=== PATIENT | female | born 1995 | race Hispanic/Latino ===

== ENCOUNTER 2022-02-07 07:21 | Emergency (ER) | payer SELFPAY ==
[2022-02-07 07:59] LABS: Urine Blood Negative (Negative); Urine Glucose Negative (Negative); Urine Protein Negative (Negative); Urine Specific Gravity 1.025 (1.005-1.030); Urine pH 6.5 (5.0-7.0)
[2022-02-07] MEDS ORDERED: MORPHINE 4 MG/ML SYR ONE (08:06)
[2022-02-07] MEDS ORDERED: ONDANSETRON 4 MG/2 ML VIAL ONE (08:06)
[2022-02-07] MEDS ORDERED: KETOROLAC 30 MG/ML INJ ONE (08:06)
[2022-02-07] MEDS ORDERED: NA CHLORIDE 0.9% 1,000 ML ONE (08:07)
[2022-02-07 08:08] LABS: Urine Specific Gravity/Preg 1.025 (1.005-1.030)
[2022-02-07 08:20] LABS: Hematocrit 40.2 % (36.0-45.0); Lymphocytes % 18.8 % (15.3-44.8); MPV 9.4 fL (7.6-11.3); RBC Red Blood Cell Count 5.52 M/uL (3.86-4.86)
[2022-02-07 08:35] LABS: Albumin 3.4 g/dL (3.4-5.0); Bilirubin Direct 0.1 mg/dL (0-0.2); Bilirubin Total 0.4 mg/dL (0.2-1.0); Potassium 4.5 mmol/L (3.5-5.1); Protein, Total 7.4 g/dL (6.4-8.2)
--- NOTE | 2022-02-07 09:04 | RAD REPORT ---
EXAM DESCRIPTION: CT - Chest For Pe Angio - 02/07/2022 8:55 am CLINICAL HISTORY: PAIN COMPARISON: No comparisons FINDINGS: Chest Wall: No suspicious thyroid nodules or pathologic lymphadenopathy. Lungs: No acute abnormality. Pleura: No significant effusions or pneumothorax. Mediastinum/kevin: No pathologic lymphadenopathy. Pulmonary arteries/Aorta: No filling defect identified. No aortic aneurysm. Heart: No significant pericardial effusion. Normal heart size. Upper abdomen: Reference contemporaneous CT of the abdomen pelvis. Bones: No acute abnormality. Mild superior endplate irregularity at T10, T11, and T12 may be developm ental. All CT scans are performed using dose optimization technique as appropriate and may include automated exposure control or mA/KV adjustment according to patient size. IMPRESSION: Negative for pulmonary embolism. No other acute findings are present within the chest.
--- NOTE | 2022-02-07 09:06 | RAD REPORT ---
EXAM DESCRIPTION: CTAbdomen Pelvis W Contrast - 02/07/2022 8:55 am CLINICAL HISTORY: ABD PAIN COMPARISON: Chest For Pe Angio dated 02/07/2022 TECHNIQUE: CT of the abdomen and pelvis was performed. All CT scans are performed using dose optimization technique as appropriate and may include automated exposure control or mA/KV adjustment according to patient size. FINDINGS: Lower chest: No acute abnormality. Liver: Hepatic steatosis. Biliary: No biliary ductal dilatation. Stomach: No significant focal abnormality. Duodenum: No significant focal abnormality. Pancreas: No significant abnormality. Spleen: No significant abnormality. Adrenal: No suspicious lesions. Kidney/ureter: No hydronephrosis. No renal calculi. Retroperitoneum: No retroperitoneal adenopathy. Vascular: No aneurysm. Bowel: No significant focal abnormality. Appendectomy. Peritoneum: No ascites or free air. For hernias. Bladder: Grossly unremarkable. Reproductive: No adnexal masses. Bones: No acute fracture. Other: n/a IMPRESSION: No acute intra-abdominal or pelvic finding. Prior appendectomy.
--- NOTE | 2022-02-07 09:32 | ER ---
Nurse's Notes [facility] Name: Hyun Alan Age: 26 yrs Sex: Female : 1995 Arrival Date: 02/07/2022 Time: 07:23 Bed 15 Private MD: Diagnosis: Unspecified symptoms and signs involving the musculoskeletal system-back pain;Obesity, unspecified Presentation: 02/07 07:32 Chief complaint: Patient states: Right sided flank/back pain that started 1 week ago ww and this morning the pain got worse. Patient denies any diarrhea, constipation, painful urination or urinary frequency. Coronavirus screen: Vaccine status: Patient reports receiving the 2nd dose of the covid vaccine. Client denies travel out of the [place] in the last 14 days. Ebola Screen: Patient denies travel to an Ebola-affected area in the 21 days before illness onset. Initial Sepsis Screen: Does the patient meet any 2 criteria? No. Patient's initial sepsis screen is negative. Does the patient have a suspected source of infection? No. Patient's initial sepsis screen is negative. Risk Assessment: Do you want to hurt yourself or someone else? Patient reports no desire to harm self or others. Onset of symptoms is unknown. 07:32 Method Of Arrival: Ambulatory ww 07:32 Acuity: JE 3 ww Triage Assessment: 07:33 General: Appears in no apparent distress. Behavior is calm, cooperative. Pain: ww Complains of pain in right mid back. Neuro: Level of Consciousness is awake, alert, obeys commands, Oriented to person, place, time, situation, Moves all extremities. Gait is steady, Speech is normal. Cardiovascular: Capillary refill < 3 seconds Patient's skin is warm and dry. Chest pain is denied. Respiratory: Airway is patent Respiratory effort is even, unlabored, Respiratory pattern is regular, symmetrical. GI: No signs and/or symptoms were reported involving the gastrointestinal system. : No signs and/or symptoms were reported regarding the genitourinary system. Denies pain urinary frequency. 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 - Social history:: Smoking status: Patient denies any tobacco usage or history of. Patient uses street drugs, marijuana. - Family history:: not pertinent. Screenin:35 Abuse screen: Denies threats or abuse. Denies injuries from another. Nutritional ww screening: No deficits noted. Tuberculosis screening: No symptoms or risk factors identified. Fall Risk None identified. Assessment: 07:30 General: Appears in no apparent distress. comfortable, obese, well groomed, Behavior is cb5 calm, cooperative, appropriate for age. Pain: Complains of pain in back and right mid back Pain currently is 6 out of 10 on a pain scale. Neuro: No deficits noted. Level of Consciousness is awake, alert, obeys commands, Oriented to person, place, time, situation, Appropriate for age. Cardiovascular: No deficits noted. Respiratory: Airway is patent Breath sounds are clear. GI: No deficits noted. : Reports pain, right flank. EENT: No deficits noted. Derm: No deficits noted. Musculoskeletal: No deficits noted. 08:23 Reassessment: Patient and/or family updated on plan of care and expected duration. Pain cb5 level reassessed. 08:35 Pain: Pain currently is 0 out of 10 on a pain scale. cb5 Vital Signs: 07:32 BP 120 / 75; Pulse 91; Resp 18; Temp 98.8; Pulse Ox 100% ; Weight 136.08 kg; Height 5 ww ft. 5 in. (165.10 cm); 08:37 BP 113 / 68; Pulse 76; Resp 16; Temp 98.6(O); Pulse Ox 96% on R/A; dh4 09:15 BP 115 / 67; Pulse 72; Resp 16; Pulse Ox 98% ; Pain 0/10; cb5 07:32 Body Mass Index 49.92 (136.08 kg, 165.10 cm) ww ED Course: 07:23 Patient arrived in ED. ds1 07:24 Rod Dacosta MD is Attending Physician. mayela 07:26 Arm band placed on Patient placed in an exam room, on a stretcher. ll1 07:33 Triage completed. ww 07:59 Nannette Marte RN is Primary Nurse. cb5 08:00 CBC with Diff Sent. cb5 08:00 Hepatic Function Sent. cb5 08:00 Lipase Sent. cb5 08:00 Basic Metabolic Panel Sent. cb5 08:00 Urine Dipstick-Ancillary Sent. cb5 08:22 Call light in reach. Side rails up X 1. Side rails up X2. cb5 08:55 CT Chest For PE Angio In Process Unspecified. EDMS 08:55 CT Abd/Pelvis - IV Contrast Only In Process Unspecified. EDMS Administered Medications: 08:05 Drug: NS 0.9% 1000 ml Route: IV; Rate: 1 bolus; Site: left antecubital; cb5 08:05 Drug: Ketorolac 30 mg Route: IVP; Site: left antecubital; cb5 08:05 Drug: morphine 2 mg Route: IVP; Site: left antecubital; cb5 08:05 Drug: Zofran (Ondansetron) 4 mg Route: IVP; Site: left antecubital; cb5 Outcome: 09:32 Discharge ordered by . mayela 09:42 Patient left the ED. cb5 Signatures: Dispatcher [employer] EDVT Rod Dacosta MD MD cha Sanford, Demi ds1 Patricio Walker 4 Chano Chu, RN RN ll1 Cristin Nguyen RN RN ww Nannette Marte, RN RN cb5
--- NOTE | 2022-02-07 09:33 | EDPHYS ---
Physician Documentation [facility] Name: Hyun Alan Age: 26 yrs Sex: Female : 1995 Arrival Date: 02/07/2022 Time: 07:23 Bed 15 Private MD: ED Physician Rod Dacosta HPI: 02/07 07:54 This 26 yrs old Female presents to ER via Ambulatory with complaints of Side mayela Pain. 07:54 The patient presents with abdominal pain. mayela 07:54 Onset: The symptoms/episode began/occurred 3 week(s) ago. The patient presents with mayela pain that is acute. The symptoms are located in the right mid back. Onset: The symptoms/episode began/occurred 21 day(s) ago. The pain does not radiate. Associated signs and symptoms: The patient has no apparent associated signs or symptoms. The problem was sustained from unknown cause. Modifying factors: The patient symptoms are alleviated by remaining still, the patient symptoms are aggravated by any movement, bending, coughing. Severity of symptoms: At their worst the symptoms were moderate, in the emergency department the symptoms are unchanged. 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 - Social history:: Smoking status: Patient denies any tobacco usage or history of. Patient uses street drugs, marijuana. - Family history:: not pertinent. ROS: 07:54 Constitutional: Negative for fever, chills, and weight loss, Eyes: Negative for injury, mayela pain, redness, and discharge, ENT: Negative for injury, pain, and discharge, Neck: Negative for injury, pain, and swelling, Cardiovascular: Negative for chest pain, palpitations, and edema, Respiratory: Negative for shortness of breath, cough, wheezing, and pleuritic chest pain, Abdomen/GI: Negative for abdominal pain, nausea, vomiting, diarrhea, and constipation, : Negative for injury, bleeding, discharge, and swelling, MS/Extremity: Negative for injury and deformity, Skin: Negative for injury, rash, and discoloration, Neuro: Negative for headache, weakness, numbness, tingling, and seizure, Psych: Negative for depression, anxiety, suicide ideation, homicidal ideation, and hallucinations, Allergy/Immunology: Negative for hives, rash, and allergies, Endocrine: Negative for neck swelling, polydipsia, polyuria, polyphagia, and marked weight changes, Hematologic/Lymphatic: Negative for swollen nodes, abnormal bleeding, and unusual bruising. 07:54 Back: Positive for decreased range of motion, pain at rest, pain with movement. 07:54 Skin: Negative for abrasions, avulsion, burn, cellulitis, diaphoresis, discoloration, ecchymosis, rash. Exam: 07:54 Constitutional: This is a well developed, well nourished patient who is awake, alert, mayela and in no acute distress. Head/Face: Normocephalic, atraumatic. Eyes: Pupils equal round and reactive to light, extra-ocular motions intact. Lids and lashes normal. Conjunctiva and sclera are non-icteric and not injected. Cornea within normal limits. Periorbital areas with no swelling, redness, or edema. ENT: Nares patent. No nasal discharge, no septal abnormalities noted. Tympanic membranes are normal and external auditory canals are clear. Oropharynx with no redness, swelling, or masses, exudates, or evidence of obstruction, uvula midline. Mucous membranes moist. Neck: Trachea midline, no thyromegaly or masses palpated, and no cervical lymphadenopathy. Supple, full range of motion without nuchal rigidity, or vertebral point tenderness. No Meningismus. Chest/axilla: Normal chest wall appearance and motion. Nontender with no deformity. No lesions are appreciated. Cardiovascular: Regular rate and rhythm with a normal S1 and S2. No gallops, murmurs, or rubs. Normal PMI, no JVD. No pulse deficits. Respiratory: Lungs have equal breath sounds bilaterally, clear to auscultation and percussion. No rales, rhonchi or wheezes noted. No increased work of breathing, no retractions or nasal flaring. Abdomen/GI: Soft, non-tender, with normal bowel sounds. No distension or tympany. No guarding or rebound. No evidence of tenderness throughout. Skin: Warm, dry with normal turgor. Normal color with no rashes, no lesions, and no evidence of cellulitis. MS/ Extremity: Pulses equal, no cyanosis. Neurovascular intact. Full, normal range of motion. Neuro: Awake and alert, GCS 15, oriented to person, place, time, and situation. Cranial nerves II-XII grossly intact. Motor strength 5/5 in all extremities. Sensory grossly intact. Cerebellar exam normal. Normal gait. Psych: Awake, alert, with orientation to person, place and time. Behavior, mood, and affect are within normal limits. 07:54 Back: pain, that is mild, ROM is painful, with all movement, normal spinal alignment noted, CVA tenderness, is absent, muscle spasm, is not present. 07:54 Musculoskeletal/extremity: DVT Exam: No signs of deep vein thrombosis. no pain, no swelling, no tenderness, negative Homans' sign noted on exam, no appreciated bluish discoloration, no erythema, no increased warmth. 08:27 ECG was reviewed by the Attending Physician. [facility] Vital Signs: 07:32 BP 120 / 75; Pulse 91; Resp 18; Temp 98.8; Pulse Ox 100% ; Weight 136.08 kg; Height 5 ww ft. 5 in. (165.10 cm); 08:37 BP 113 / 68; Pulse 76; Resp 16; Temp 98.6(O); Pulse Ox 96% on R/A; dh4 09:15 BP 115 / 67; Pulse 72; Resp 16; Pulse Ox 98% ; Pain 0/10; cb5 07:32 Body Mass Index 49.92 (136.08 kg, 165.10 cm) MDM: 07:27 Patient medically screened. [facility] 07:56 Differential diagnosis: sprain, Ureterolithiasis coronary artery disease, mayela Cholelithiasis, non-specific abd pain. Data reviewed: vital signs, nurses notes, lab test result(s), EKG, radiologic studies, CT scan. Data interpreted: cardiac monitor technician: rate is 91 beats/min, rhythm is regular, Pulse oximetry: on room air is 100 %. Test interpretation: by ED physician or midlevel provider: ECG. Counseling: I had a detailed discussion with the patient and/or guardian regarding: the historical points, exam findings, and any diagnostic results supporting the discharge/admit diagnosis, lab results, radiology results. 02/07 07:48 Order name: Basic Metabolic Panel [facility] 02/07 07:48 Order name: CBC with Diff; Complete Time: 09:30 mayela 02/07 07:48 Order name: Hepatic Function; Complete Time: 09:30 mayela 02/07 07:48 Order name: Lipase; Complete Time: 09:30 mayela 02/07 07:48 Order name: Basic Metabolic Panel; Complete Time: 09:30 EDMS 02/07 07:59 Order name: Urine Dipstick-Ancillary EDMS 02/07 07:48 Order name: CT Chest For PE Angio; Complete Time: 09:30 mayela 02/07 07:48 Order name: CT Abd/Pelvis - IV Contrast Only; Complete Time: 09:30 mayela 02/07 08:07 Order name: Test Urine - POC; Complete Time: 09:30 02/07 07:48 Order name: IV Saline Lock; Complete Time: 08:00 [facility] 02/07 07:48 Order name: Labs collected and sent; Complete Time: 08:00 mayela 02/07 07:48 Order name: Urine Dipstick-Ancillary (obtain specimen); Complete Time: 08:00 [facility] 02/07 07:48 Order name: Urine Test (obtain specimen); Complete Time: 08:00 [facility] 02/07 07:53 Order name: EKG; Complete Time: 07:54 [facility] 02/07 07:53 Order name: EKG - Nurse/Tech; Complete Time: 08:00 [facility] EC:27 Rate is 84 beats/min. Rhythm is regular. QRS [place] is Normal. [place] interval is normal. QRS mayela interval is normal. QT interval is normal. No Q waves. T waves are Normal. No ST changes noted. Clinical impression: Normal ECG and No evidence of ischemia. Interpreted by me. Reviewed by me. Administered Medications: 08:05 Drug: NS 0.9% 1000 ml Route: IV; Rate: 1 bolus; Site: left antecubital; cb5 08:05 Drug: Ketorolac 30 mg Route: IVP; Site: left antecubital; cb5 08:05 Drug: morphine 2 mg Route: IVP; Site: left antecubital; cb5 08:05 Drug: Zofran (Ondansetron) 4 mg Route: IVP; Site: left antecubital; cb5 Disposition Summary: 02/07/22 09:32 Discharge Ordered Location: Home mayela Problem: new mayela Symptoms: have improved mayela Condition: Stable mayela Diagnosis - Unspecified symptoms and signs involving the musculoskeletal system - back pain mayela - Obesity, unspecified mayela Followup: mayela - With: Private Physician - When: 2 - 3 days - Reason: Recheck today's complaints, Continuance of care, Re-evaluation by your physician Discharge Instructions: - Discharge Summary Sheet mayela - Musculoskeletal Pain mayela - Obesity, Adult mayela - Obesity, Adult, [id number] [facility] Forms: - Medication Reconciliation Form [facility] - Thank You Letter mayela - Antibiotic Education [facility] - Prescription Opioid Use [facility] Prescriptions: - Diclofenac Sodium 75 mg Oral tablet,delayed release (DR/EC) - take 1 tablet by ORAL route 2 times per day; 20 tablet; Refills: 0, Product [facility] Selection Permitted - Tylenol-Codeine #3 300 mg-30 mg Oral - take 2 tablet by ORAL route every 6 hours; 15 tablet; Refills: 0, Product [facility] Selection Permitted Signatures: Dispatcher [employer] Rod Murrell MD MD cha Wood, Whitney RN Nannette Abdi RN RN cb5
[2022-02-07 09:49] VITALS: TEMP 98.6
[2022-02-07 09:50] VITALS: BP 115/67; O2SAT 98
== END 2022-02-07 09:42 | disposition home or self-care (01) ==
LOC: ER 07:21
DX: M54.9 Dorsalgia, unspecified (principal); E66.9 Obesity, unspecified; Z68.42 Body mass index [BMI] 45.0-49.9, adult
CPT/HCPCS: 36415; 71275; 74177; 80048; 80076; 81003; 81025; 83690; 85025; 93005; 96374; 96375; 99283; J2405; J7030; Q9967

== ENCOUNTER 2022-02-08 03:09 | Emergency (ER) | payer SELFPAY ==
[2022-02-08] MEDS ORDERED: KETOROLAC 30 MG/ML INJ ONE (05:19)
[2022-02-08 06:34] LABS: Urine Blood Negative (Negative); Urine Glucose Negative (Negative); Urine Protein Negative (Negative); Urine Specific Gravity >=1.030 (1.005-1.030)
--- NOTE | 2022-02-08 06:36 | ER ---
Nurse's Notes [facility] Name: Hyun Alan Age: 26 yrs Sex: Female : 1995 Arrival Date: 02/08/2022 Time: 03:12 Bed 16 Private MD: Diagnosis: Chest wall pain Presentation: 02/08 03:34 Chief complaint: Patient states: pain in right side of rib area. was seen yesterday lg3 morning here and discharged. now pain is radiating down to leg. Coronavirus screen: Client denies travel out of the [place] in the last 14 days. At this time, the client does not indicate any symptoms associated with coronavirus-19. Ebola Screen: No symptoms or risks identified at this time. Initial Sepsis Screen: Does the patient meet any 2 criteria? No. Patient's initial sepsis screen is negative. Does the patient have a suspected source of infection? No. Patient's initial sepsis screen is negative. Risk Assessment: Do you want to hurt yourself or someone else? Patient reports no desire to harm self or others. Onset of symptoms was February 01, 2022. 03:34 Method Of Arrival: Ambulatory lg3 03:34 Acuity: JE 4 lg3 Triage Assessment: 03:37 General: Appears in no apparent distress. uncomfortable, Behavior is calm, cooperative. lg3 Pain: Complains of pain in right side rib area Pain currently is 8 out of 10 on a pain scale. EENT: No deficits noted. No signs and/or symptoms were reported regarding the EENT system. Neuro: No deficits noted. Level of Consciousness is awake, alert, obeys commands, Oriented to person, place, time, situation. Cardiovascular: No deficits noted. Reports chest tightness. Respiratory: No deficits noted. Airway is patent Trachea midline Respiratory effort is even, unlabored, Respiratory pattern is regular, symmetrical. GI: No deficits noted. No signs and/or symptoms were reported involving the gastrointestinal system. Abdomen is round non-distended. : No deficits noted. No signs and/or symptoms were reported regarding the genitourinary system. Derm: No deficits noted. No signs and/or symptoms reported regarding the dermatologic system. Skin is intact, is healthy with good turgor, Skin is dry. Musculoskeletal: No deficits noted. No signs and/or symptoms reported regarding the musculoskeletal system. Circulation, motion, and sensation intact. Capillary refill < 3 seconds, Range of motion: intact in all extremities. 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 - Social history:: Smoking status: Patient denies any tobacco usage or history of. Patient/guardian denies using alcohol. Screenin:40 Abuse screen: Denies threats or abuse. Denies injuries from another. Nutritional lg3 screening: No deficits noted. Tuberculosis screening: No symptoms or risk factors identified. Fall Risk None identified. Assessment: 04:35 General: Appears comfortable, obese, well groomed, well developed, well nourished, tk1 Behavior is calm, cooperative, appropriate for age. Pain: Complains of pain in right side, from neck to hip Whole right side Pain currently is 10 out of 10 on a pain scale. Quality of pain is described as aching, Pain began 1 day ago. Neuro: Level of Consciousness is awake, alert, obeys commands, Oriented to person, place, time, situation, Appropriate for age Ict Developer are equal bilaterally Moves all extremities. Gait is steady, Speech is normal. Cardiovascular: Capillary refill < 3 seconds is brisk in bilateral fingers Clubbing of nail beds is absent. Respiratory: Airway is patent Respiratory effort is even, unlabored, Respiratory pattern is regular, symmetrical, Breath sounds are clear bilaterally. GI: No deficits noted. No signs and/or symptoms were reported involving the gastrointestinal system. : No deficits noted. No signs and/or symptoms were reported regarding the genitourinary system. EENT: No deficits noted. No signs and/or symptoms were reported regarding the EENT system. Derm: No deficits noted. No signs and/or symptoms reported regarding the dermatologic system. Musculoskeletal: Range of motion: intact in all extremities, Reports pain in right side since 1 day. 06:27 Reassessment: No changes from previously documented assessment. Patient and/or family tk1 updated on plan of care and expected duration. Pain level reassessed. Patient is alert, oriented x 3, equal unlabored respirations, skin warm/dry/pink. 06:52 Reassessment: D/C per MD order. Discharge instructions given to patient. Verbalized tk1 understanding. Vital Signs: 03:34 BP 128 / 86; Pulse 97; Resp 18 S; Temp 98.5(O); Pulse Ox 100% on R/A; Weight 145.15 kg lg3 (R); Height 5 ft. 5 in. (165.10 cm) (R); Pain 8/10; 04:41 BP 129 / 57 RA Supine (auto/reg); Pulse 89 MON; Resp 18 S; Temp 98(O); Pulse Ox 100% ; tk1 06:26 Pain 4/10; tk1 03:34 Body Mass Index 53.25 (145.15 kg, 165.10 cm) lg3 ED Course: 03:12 Patient arrived in ED. 03:37 Triage completed. lg3 03:37 Arm band placed on left wrist. 3 03:50 Jose Stanley MD is Attending Physician. [facility] 04:34 Yessica Smith is Primary Nurse. tk1 04:41 Patient has correct armband on for positive identification. Bed in low position. Call tk1 light in reach. Side rails up X2. Pulse ox on. NIBP on. 04:41 No provider procedures requiring assistance completed. Patient maintains SpO2 tk1 saturation greater than 95% on room air. 06:52 Patient did not have IV access during this emergency room visit. tk1 Administered Medications: 05:18 Drug: Ketorolac 60 mg Route: IM; Site: left ventrogluteal; tk1 06:26 Follow up: Pain 4/10 Adult; Response: Pain is decreased tk1 Outcome: 06:36 Discharge ordered by . [facility] 06:52 Discharged to home ambulatory. tk1 06:52 Condition: improved 06:52 Discharge instructions given to patient, Instructed on discharge instructions, follow up and referral plans. medication usage, Demonstrated understanding of instructions, follow-up care, medications. 06:53 Patient left the ED. tk1 Signatures: Carly Fletcher, RN RN lg3 Jose Stanley MD MD [facility] Juju Burdick Yessica Smith tk1
--- NOTE | 2022-02-08 06:37 | EDPHYS ---
Physician Documentation [facility] Name: Hyun Alan Age: 26 yrs Sex: Female : 1995 Arrival Date: 02/08/2022 Time: 03:12 Bed 16 Private MD: ED Physician Jose Stanley HPI: 02/08 05:28 This 26 yrs old Female presents to ER via Ambulatory with complaints of Chest mh7 Pain - Right side. 05:28 The patient or guardian reports chest pain that is located primarily in the Right lower mh7 rib area. 05:28 The pain radiates to right back. mh7 05:28 Associated signs and symptoms: Pertinent negatives: abdominal pain, cough, diaphoresis, mh7 dizziness, headache, lower extremity pain, lower extremity swelling, lightheadedness, nausea, near syncope, palpitations, recent travel, shortness of breath, syncope, vomiting. The chest pain is described as sharp. Duration: The patient or guardian reports multiple episodes, that are intermittent, that wax and wane, with no pattern. Modifying factors: The symptoms are alleviated by remaining still, the symptoms are aggravated by movement, palpation of area. Severity of pain: At its worst the pain was moderate yesterday, in the emergency department the pain has improved moderately. The patient has been recently seen at the [facility] Emergency Department, yesterday. [employer] ROOM: 03:37 LMP 09/12/2021 lg3 Historical: - Allergies: 03:37 No Known Allergies; lg3 - Home Meds: 03:37 None [Active]; lg3 - PMHx: 03:37 None; lg3 - PSHx: 03:37 Appendectomy; Right Ankle; lg3 - Immunization history:: Adult Immunizations up to date, pfizer X3. - Social history:: Smoking status: Patient denies any tobacco usage or history of. Patient/guardian denies using alcohol. ROS: 05:28 Constitutional: Negative for fever, chills, and weight loss, Eyes: Negative for injury, mh7 pain, redness, and discharge, ENT: Negative for injury, pain, and discharge, Neck: Negative for injury, pain, and swelling, Respiratory: Negative for shortness of breath, cough, wheezing, and pleuritic chest pain, Abdomen/GI: Negative for abdominal pain, nausea, vomiting, diarrhea, and constipation, : Negative for injury, bleeding, discharge, and swelling, MS/Extremity: Negative for injury and deformity, Skin: Negative for injury, rash, and discoloration, Neuro: Negative for headache, weakness, numbness, tingling, and seizure, Psych: Negative for depression, anxiety, suicide ideation, homicidal ideation, and hallucinations, Allergy/Immunology: Negative for hives, rash, and allergies, Endocrine: Negative for neck swelling, polydipsia, polyuria, polyphagia, and marked weight changes, Hematologic/Lymphatic: Negative for swollen nodes, abnormal bleeding, and unusual bruising. Exam: 05:28 Constitutional: This is a well developed, well nourished patient who is awake, alert, mh7 and in no acute distress. Head/Face: Normocephalic, atraumatic. Eyes: Pupils equal round and reactive to light, extra-ocular motions intact. Lids and lashes normal. Conjunctiva and sclera are non-icteric and not injected. Cornea within normal limits. Periorbital areas with no swelling, redness, or edema. Neck: Trachea midline, no thyromegaly or masses palpated, and no cervical lymphadenopathy. Supple, full range of motion without nuchal rigidity, or vertebral point tenderness. No Meningismus. 05:28 Cardiovascular: Regular rate and rhythm with a normal S1 and S2. No gallops, murmurs, or rubs. Normal PMI, no JVD. No pulse deficits. Respiratory: Lungs have equal breath sounds bilaterally, clear to auscultation and percussion. No rales, rhonchi or wheezes noted. No increased work of breathing, no retractions or nasal flaring. Abdomen/GI: Soft, non-tender, with normal bowel sounds. No distension or tympany. No guarding or rebound. No evidence of tenderness throughout. Back: No spinal tenderness. No costovertebral tenderness. Full range of motion. Skin: Warm, dry with normal turgor. Normal color with no rashes, no lesions, and no evidence of cellulitis. MS/ Extremity: Pulses equal, no cyanosis. Neurovascular intact. Full, normal range of motion. Neuro: Awake and alert, GCS 15, oriented to person, place, time, and situation. Cranial nerves II-XII grossly intact. Motor strength 5/5 in all extremities. Sensory grossly intact. Cerebellar exam normal. Normal gait. Psych: Awake, alert, with orientation to person, place and time. Behavior, mood, and affect are within normal limits. 05:28 Chest/axilla: Inspection: normal, Palpation: tenderness, that is moderate, of the right lateral anterior chest, that totally reproduces the patient's complaints, Axilla: are normal, Lymph nodes: lymphadenopathy is not appreciated. 05:28 ECG was reviewed by the Attending Physician. [facility] Vital Signs: 03:34 BP 128 / 86; Pulse 97; Resp 18 S; Temp 98.5(O); Pulse Ox 100% on R/A; Weight 145.15 kg lg3 (R); Height 5 ft. 5 in. (165.10 cm) (R); Pain 8/10; 04:41 BP 129 / 57 RA Supine (auto/reg); Pulse 89 MON; Resp 18 S; Temp 98(O); Pulse Ox 100% ; tk1 06:26 Pain 4/10; tk1 03:34 Body Mass Index 53.25 (145.15 kg, 165.10 cm) lg3 MDM: 06:33 Differential diagnosis: anxiety, chest wall pain, costochondritis, Musculoskeletal [facility] pain. HEART Score:. Data reviewed: vital signs, nurses notes, old medical records, lab test result(s), urinalysis, EKG. Data interpreted: Pulse oximetry: on room air is 100 %. Interpretation: normal. Counseling: I had a detailed discussion with the patient and/or guardian regarding: the historical points, exam findings, and any diagnostic results supporting the discharge/admit diagnosis, lab results, the need for outpatient follow up. Response to treatment: the patient's symptoms have resolved after treatment, the patient's blood pressure is in an acceptable range, mental status has returned to baseline, the patient no longer shows bradycardia, the patient is not short of breath, the patient is not tachycardic, the patient's pain is gone, the patient's temperature has normalized. 06:36 Patient medically screened. [facility] 02/08 06:33 Order name: Urine Dipstick-Ancillary; Complete Time: 06:45 EDMS 02/08 05:06 Order name: EKG; Complete Time: 05:06 [facility] 02/08 05:06 Order name: EKG - Nurse/Tech; Complete Time: 05:20 mh7 02/08 05:19 Order name: Urine Dipstick-Ancillary (obtain specimen); Complete Time: 06:36 mh7 EC:28 Rate is 84 beats/min. Rhythm is regular, Normal Sinus Rhythm with No ectopy. QRS [place] 7 is Normal. MD interval is normal. QRS interval is normal. QT interval is normal. No Q waves. T waves are Normal. No ST changes noted. Clinical impression: Normal ECG and No evidence of ischemia. Administered Medications: 05:18 Drug: Ketorolac 60 mg Route: IM; Site: left ventrogluteal; tk1 06:26 Follow up: Pain 410 Adult; Response: Pain is decreased tk1 Disposition Summary: 02/08/22 06:36 Discharge Ordered Location: Home [facility] Problem: an ongoing problem [facility] Symptoms: have improved [facility] Condition: Stable [facility] Diagnosis - Chest wall pain [facility] Followup: [facility] - With: Private Physician - When: 1 - 2 days - Reason: Worsening of condition, Recheck today's complaints, Continuance of care, Re-evaluation by your physician Discharge Instructions: - Discharge Summary Sheet [facility] - Chest Wall Pain, [id number] [facility] Forms: - Medication Reconciliation Form [facility] - Thank You Letter 7 - Antibiotic Education [facility] - Prescription Opioid Use [facility] Signatures: Dispatcher [employer] Carly Holland, RN RN lg3 Jose Stanley MD MD 7 Yessica Smith tk1
[2022-02-08 07:13] VITALS: O2SAT 100
[2022-02-08 07:14] VITALS: BP 129/57; TEMP 98
== END 2022-02-08 06:53 | disposition home or self-care (01) ==
LOC: ER 03:09
DX: R07.89 Other chest pain (principal)
CPT/HCPCS: 81003; 93005; 96372; 99284